=== PATIENT | female | born 1960 | race Caucasian/White ===

== ENCOUNTER 2016-03-25 22:10 | Emergency (ER) | payer MEDICAID ==
[2016-03-25] MEDS ORDERED: MORPHINE 4 MG/ML SYR ONE (22:33)
[2016-03-25] MEDS ORDERED: ONDANSETRON ODT 4 MG TAB ONE (22:34)
== END 2016-03-25 23:13 | disposition home or self-care (01) ==
LOC: ER 22:10
CPT/HCPCS: 96372